=== PATIENT | female | born 1995 | race Caucasian/White ===

== ENCOUNTER 2016-12-05 09:47 | Emergency (ER) | payer BC ==
[~2016-12-05] VITALS: Ht 154.9 cm; Wt 68.4 kg
[2016-12-05 09:59] VITALS: TEMP 36.8; Ht 154.9 cm; Wt 68.4 kg
[2016-12-05] MEDS ORDERED: SODIUM CHLORIDE 0.9% 1000ML 1,000 ML IV STA (10:36)
[2016-12-05] MEDS ORDERED: ONDANSETRON INJ 2 MG/ML 2 ML VIAL IV STA (10:36)
[2016-12-05] MEDS ORDERED: MoRPHine SULFATE 4 MG/ML 1 ML CARP\\VIAL IV STA (10:36)
[2016-12-05] MEDS ORDERED: CYAN100048 PO (10:43)
[2016-12-05] MEDS ORDERED: LORA10CA2 PO (10:43)
[2016-12-05] MEDS ORDERED: VNTHFA/IN INH (10:43)
[2016-12-05] MEDS ORDERED: FLUT0.15 NAE (10:43)
[2016-12-05 10:45] LABS: BASO % 0.3 %; BASO ABS # 0.03 K/uL (0-0.2); COMPLETE YES; EOS % 0.4 %; HEMATOCRIT 44.8 % (37-47); IG% 0.3 %; LYMPH % 9.2 %; LYMPH ABS # 1.05 K/uL (1.2-3.4); MEAN CELL VOLUME 87.5 fL (80-100); MEAN CORPUSCULAR HEMOGLOBIN 29.9 pg (25-34); MEAN CORPUSCULAR HGB CONC 34.2 g/dl (32-36); MEAN PLATELET VOLUME 10.5 fL (7.4-10.4); MONO % 7.1 %; NEUT % 82.7 %; PLATELET COUNT 278 K/uL (130-400); RED BLOOD COUNT 5.12 M/uL (4.2-5.4); WHITE BLOOD COUNT 11.43 K/uL (4.8-10.8)
[2016-12-05] MEDS ORDERED: OPTIRAY 320 IV PRN (10:45)
[2016-12-05 10:52] LABS: BUN/CREATININE RATIO 8.4 (10-20); CALCIUM 9.5 mg/dl (8.5-10.1); CREATININE 0.91 mg/dl (0.60-1.20); MAGNESIUM 1.9 mg/dl (1.8-2.4); POTASSIUM 3.8 mmol/L (3.5-5.1)
--- NOTE | 2016-12-05 12:00 | DIAGNOSTIC IMAGING REPORT ---
CT ABD/PELVIS IV CONTRAST ONLY CLINICAL HISTORY: periumbilical pain DIARRHEA. COMPARISON STUDY: None. TECHNIQUE: Following the IV administration of 94 mL of Optiray-320, CT scan of the abdomen and pelvis was performed from the lung bases to the proximal femurs. Images are reviewed in the axial, sagittal, and coronal planes. IV contrast was administered without complication. CT DOSE: 585.17 mGycm FINDINGS: Lower chest: The heart is normal in size and configuration, without pericardial effusion. The lung bases and pleural spaces are clear. Liver: The contrast-enhanced liver is normal in size, contour, and attenuation. There is no intrahepatic biliary ductal dilatation. The hepatic veins and portal veins are patent. Gallbladder: Unremarkable. Spleen: Normal in size and attenuation. Pancreas: Unremarkable. Adrenal glands: Unremarkable. Kidneys: There is symmetric renal cortical enhancement. The kidneys are normal in size without hydronephrosis. Bowel: There are no transition zones to indicate bowel obstruction. There is no evidence of acute diverticulitis. The appendix is minimally dilated, but acute appendicitis is not deemed likely. There is bowel wall thickening involving multiple pelvic small bowel loops. There is mesenteric hypervascularity with a "comb sign". The findings are suggestive of a small bowel enteritis, infectious versus inflammatory bowel disease. Peritoneum: There is a small amount of free fluid present within the pelvis,, as well as within Morison's pouch. Vasculature: The abdominal aorta is normal in course and caliber. Adenopathy: There are mildly prominent ileocolic lymph nodes, likely reactive. Pelvic viscera: The bladder, and pelvic viscera are unremarkable. Skeletal structures: No destructive osseous lesions are seen. IMPRESSION: 1. No evidence of bowel obstruction. No evidence of free air 2. Thick-walled fluid-filled small bowel loops. The findings are indicative of a small bowel enteritis (infectious versus inflammatory bowel disease) 3. Small amount of free fluid 4. Minor appendiceal dilatation. This is unlikely to represent acute appendicitis given the other findings. Electronically signed by: Mo Field M.D. 12/05/2016 11:59 AM Dictated Date/Time: 12/05/2016 11:50 AM
[2016-12-05 12:24] VITALS: PULSE 101
[2016-12-05] MEDS ORDERED: DICYCLOMINE HCL 20 MG TAB PO STA (12:25)
[2016-12-05 12:38] LABS: URINE APPEARANCE CLEAR (CLEAR); URINE BILIRUBIN NEG (NEG); URINE COLOR YELLOW; URINE NITRITE NEG (NEG); URINE PH 7.5 (4.5-7.5); URINE SPECIFIC GRAVITY 1.026 (1.000-1.030); UROBILINOGEN NEG (NEG); ZZUR CULT IF INDIC CLEAN CATCH NO
[2016-12-05 12:45] LABS: MANUAL MICROSCOPIC REQUIRED? NO; REVIEW REQ? NO
[2016-12-05] MEDS ORDERED: DICY20TA35 PO (12:51)
--- NOTE | 2016-12-05 12:57 | EMERGENCY ROOM VISIT NOTE ---
History Report prepared by [place]: Steven Blum Under the Supervision of: Dr. Sharon Fuentes M.D. First contact with patient: 10:28 Chief Complaint: ABDOMINAL PAIN Stated Complaint: ABD. PAIN Nursing Triage Summary: having mid abdominal pain since saturday. had some diarrhea this morning History of Present Illness The patient is a 21 year old female who presents to the Emergency Room with complaints of worsening centralized abdominal pain beginning two days ago. She also complains of diarrhea beginning today. She denies any vomiting, abnormal vaginal discharge, or fevers. The patient is sexually active. Her LNMP was two weeks ago. She denies any chance of . The patient notes that she experienced abdominal cramping three weeks ago along with her period, which is very uncharacteristic of her menstrual cycle. Source of History: patient Onset: Two days ago Position: abdomen (centralized) Timing: worsening Associated Symptoms: + diarrhea, No fevers, No vomiting Note: The patient denies any abnormal vaginal discharge. Review of Systems See HPI for pertinent positives & negatives. A total of 10 systems reviewed and were otherwise negative. Past Medical & Surgical Medical Problems: (1) B12 deficiency Surgical Problems: (1) H/O sinus surgery (2) H/O wisdom tooth extraction Family History No pertinent family history stated. Social History Smoking Status: Never Smoker Alcohol Use: occasionally Housing Status: lives with roommate Current/Historical Medications Scheduled Cyanocobalamin (Vitamin B-12), 2,000 MCG PO DAILY Fluticasone Propionate (Nasal) (Flonase Allergy Relief), 2 SPRAYS BALJIT DAILY Loratadine (Claritin), 10 MG PO DAILY Scheduled PRN Albuterol Hfa (Ventolin Hfa), 2-4 PUFFS INH Q6H PRN for SOB/Wheezing Dicyclomine Hcl (Bentyl), 20 MG PO Q6 PRN for cramping Allergies Coded Allergies: Amoxicillin (Verified Allergy, Intermediate, HIVES, 12/05/16) CHILDHOOD ALLERGY Physical Exam Vital Signs Date Time Temp Pulse Resp B/P (MAP) Pulse Ox O2 Delivery O2 Flow Rate FiO2 12/05/16 13:04 16 128/86 97 Room Air 12/05/16 12:24 101 16 110/66 12/05/16 09:59 36.8 102 18 125/81 96 Room Air Physical Exam Vital signs reviewed. General: Well-appearing female, in no significant distress. HEENT: No scleral icterus, PERRLA, neck supple. Atraumatic. Cardiovascular: Regular rate and rhythm, no extra sounds. Pulmonary: Clear to auscultation bilaterally, normal work of breathing. Abdomen: Soft, mild mid-abdominal tenderness, nondistended, positive bowel sounds. Musculoskeletal: Atraumatic, no peripheral edema. Neurologic: Patient awake alert and oriented x 3, full strength in all 4 extremities. Cranial nerves 2 through 12 grossly intact. Skin: Warm, dry, no rash Medical Decision & Procedures ER Provider Diagnostic Interpretation: CT results as stated below per my review and radiologist interpretation: CT ABD/PELVIS IV CONTRAST ONLY FINDINGS: Lower chest: The heart is normal in size and configuration, without pericardial effusion. The lung bases and pleural spaces are clear. Liver: The contrast-enhanced liver is normal in size, contour, and attenuation. There is no intrahepatic biliary ductal dilatation. The hepatic veins and portal veins are patent. Gallbladder: Unremarkable. Spleen: Normal in size and attenuation. Pancreas: Unremarkable. Adrenal glands: Unremarkable. Kidneys: There is symmetric renal cortical enhancement. The kidneys are normal in size without hydronephrosis. Bowel: There are no transition zones to indicate bowel obstruction. There is no evidence of acute diverticulitis. The appendix is minimally dilated, but acute appendicitis is not deemed likely. There is bowel wall thickening involving multiple pelvic small bowel loops. There is mesenteric hypervascularity with a "comb sign". The findings are suggestive of a small bowel enteritis, infectious versus inflammatory bowel disease. Peritoneum: There is a small amount of free fluid present within the pelvis,, as well as within Morison's pouch. Vasculature: The abdominal aorta is normal in course and caliber. Adenopathy: There are mildly prominent ileocolic lymph nodes, likely reactive. Pelvic viscera: The bladder, and pelvic viscera are unremarkable. Skeletal structures: No destructive osseous lesions are seen. IMPRESSION: 1. No evidence of bowel obstruction. No evidence of free air 2. Thick-walled fluid-filled small bowel loops. The findings are indicative of a small bowel enteritis (infectious versus inflammatory bowel disease) 3. Small amount of free fluid 4. Minor appendiceal dilatation. This is unlikely to represent acute appendicitis given the other findings. Electronically signed by: Mo Field M.D. Laboratory Results 12/05/16 10:20 Red Blood Count 5.12, Mean Corpuscular Volume 87.5, Mean Corpuscular Hemoglobin 29.9, Mean Corpuscular Hemoglobin Concent 34.2, Mean Platelet Volume 10.5, Neutrophils (%) (Auto) 82.7, Lymphocytes (%) (Auto) 9.2, Monocytes (%) (Auto) 7.1, Eosinophils (%) (Auto) 0.4, Basophils (%) (Auto) 0.3, Neutrophils # (Auto) 9.46, Lymphocytes # (Auto) 1.05, Monocytes # (Auto) 0.81, Eosinophils # (Auto) 0.05, Basophils # (Auto) 0.03 12/05/16 10:20 Test 12/05/16 10:20 12/05/16 12:15 White Blood Count 11.43 K/uL (4.8-10.8) Red Blood Count 5.12 M/uL (4.2-5.4) Hemoglobin 15.3 g/dL (12.0-16.0) Hematocrit 44.8 % (37-47) Mean Corpuscular Volume 87.5 fL (80-100) Mean Corpuscular Hemoglobin 29.9 pg (25-34) Mean Corpuscular Hemoglobin Concent 34.2 g/dl (32-36) Platelet Count 278 K/uL (130-400) Mean Platelet Volume 10.5 fL (7.4-10.4) Neutrophils (%) (Auto) 82.7 % Lymphocytes (%) (Auto) 9.2 % Monocytes (%) (Auto) 7.1 % Eosinophils (%) (Auto) 0.4 % Basophils (%) (Auto) 0.3 % Neutrophils # (Auto) 9.46 K/uL (1.4-6.5) Lymphocytes # (Auto) 1.05 K/uL (1.2-3.4) Monocytes # (Auto) 0.81 K/uL (0.11-0.59) Eosinophils # (Auto) 0.05 K/uL (0-0.5) Basophils # (Auto) 0.03 K/uL (0-0.2) RDW Standard Deviation 40.1 fL (36.4-46.3) RDW Coefficient of Variation 12.5 % (11.5-14.5) Immature Granulocyte % (Auto) 0.3 % Immature Granulocyte # (Auto) 0.03 K/uL (0.00-0.02) Anion Gap 10.0 mmol/L (3-11) Est Creatinine Clear Calc Drug Dose 85.0 ml/min Estimated GFR () 103.1 Estimated GFR (Non- 88.9 BUN/Creatinine Ratio 8.4 (10-20) Calcium Level 9.5 mg/dl (8.5-10.1) Magnesium Level 1.9 mg/dl (1.8-2.4) Total Bilirubin 0.6 mg/dl (0.2-1) Direct Bilirubin 0.1 mg/dl (0-0.2) Aspartate Amino Transf (AST/SGOT) 26 U/L (15-37) Alanine Aminotransferase (ALT/SGPT) 39 U/L (12-78) Alkaline Phosphatase 87 U/L (45-117) Total Protein 8.6 gm/dl (6.4-8.2) Albumin 4.0 gm/dl (3.4-5.0) Lipase 202 U/L (73-393) Urine Color YELLOW Urine Appearance CLEAR (CLEAR) Urine pH 7.5 (4.5-7.5) Urine Specific [place] 1.026 (1.000-1.030) Urine Protein NEG (NEG) Urine Glucose (UA) NEG (NEG) Urine Ketones 1+ (NEG) Urine Occult Blood NEG (NEG) Urine Nitrite NEG (NEG) Urine Bilirubin NEG (NEG) Urine Urobilinogen NEG (NEG) Urine Leukocyte Esterase NEG (NEG) Urine Test NEG (NEG) Laboratory results per my review. Medications Administered Medications (Trade) Dose Ordered Sig/Kenan Route Start Time Stop Time Status Last Admin Dose Admin Morphine Sulfate (MoRPHine SULFATE INJ) 4 mg NOW STAT IV 12/05/16 10:36 12/05/16 10:38 DC 12/05/16 11:04 4 MG Ondansetron HCl (Zofran Inj) 4 mg NOW STAT IV 12/05/16 10:36 12/05/16 10:38 DC 12/05/16 11:02 4 MG Sodium Chloride 1,000 ml @ 999 mls/hr Q1H1M STAT IV 12/05/16 10:36 12/05/16 11:36 DC 12/05/16 11:02 999 MLS/HR Dicyclomine HCl (Bentyl Cap) 20 mg STK-MED ONCE .ROUTE 12/05/16 12:58 12/05/16 12:59 DC 12/05/16 13:02 20 MG ED Course 1034: Past medical records reviewed. The patient was evaluated in room A11B. A complete history and physical examination was performed. 1036: Ordered Sodium Chloride 1000 ml @ 999 mls/hr IV, Zofran Inj 4 mg IV, Morphine Sulfate 4 mg IV. 1225: Ordered Bentyl Tab 20 mg PO. 1245: Upon reevaluation, the patient appeared to have improvement of her symptoms. I discussed findings with her. She verbalized agreement of the treatment plan. The patient was discharged home. Medical Decision Differential diagnosis: Etiologies such as appendicitis, diverticulitis, PUD, biliary pathology, UTI, pancreatitis, obstruction, mesenteric ischemia, aortic pathology, infections, inflammatory bowel disease, renal colic, as well as others were entertained. This patient was evaluated and appeared to be in no significant distress. IV access was obtained and laboratory work was drawn. The patient was placed on the associate biological sales and found to be in a normal sinus rhythm. Patient was hydrated with normal saline solution, given IV morphine and Zofran for pain. Laboratory work is fairly unrevealing. CT scan abdomen and pelvis reveals a nonspecific enteritis, likely infectious or inflammatory. Patient was given Bentyl 20 mg. She was advised of the findings. In retrospect, the patient feels as though she has multiple food intolerances that this has been ongoing for sometime. She was encouraged to follow-up with her PCP this week and will likely require gastroenterology follow-up. The patient will return to the emergency department for worsening of symptoms or any medical concerns. Impression Primary Impression: Enteritis Scribe Attestation The scribe's documentation has been prepared under my direction and personally reviewed by me in its entirety. I confirm that the note above accurately reflects all work, treatment, procedures, and medical decision making performed by me. Departure Information Dispostion Home / Self-Care Prescriptions Dicyclomine Hcl (BENTYL) 20 Mg Tab 20 MG PO Q6 Y for cramping, #30 TAB Prov: Sharon Fuentes M.D. 12/05/16 Referrals No Doctor, Assigned (PCP) Forms HOME CARE DOCUMENTATION FORM, IMPORTANT VISIT INFORMATION Patient Instructions My [facility] Additional Instructions Diagnosis: Enteritis Bentyl 20 mg every 6 hours as needed for abdominal cramping Drink plenty of fluids. Avoid greasy, spicy foods. Avoid alcohol, aspirin, aleve and ibuprofen Tylenol 650 mg every 6 hours as needed for pain, fever. Follow up with your doctor this week for reevaluation. Return to the ED for worsening of symptoms or any medical concerns. You will likely require gastroenterology referral.
[2016-12-05] MEDS ORDERED: DICYCLOMINE HCL 10 MG CAP ONE (12:58)
[2016-12-05 13:04] VITALS: BP 128/86; O2SAT 97
== END 2016-12-05 13:16 | disposition home or self-care (01) ==
LOC: C.EDB 09:49 → C.EDA 13:16
DX: K52.9 Noninfective gastroenteritis and colitis, unspecified (principal); E53.8 Deficiency of other specified B group vitamins; Z79.899 Other long term (current) drug therapy